=== PATIENT | female | born 1945 ===

== ENCOUNTER 2017-02-26 06:43 | Emergency (ER) | payer MEDICARE, OTHER ==
[2017-02-26 07:09] VITALS: TEMP 98.5
[2017-02-26] MEDS ORDERED: Sodium Chloride 0.9% 1,000 ML IV STA (07:16)
--- NOTE | 2017-02-26 07:18 | ED PDOC ---
HPI: Abdomen Time Seen by Provider: 02/26/17 07:08 Chief Complaint (Nursing): Abdominal Pain History Per: Patient Onset/Duration Of Symptoms: Days (1) Current Symptoms Are (Timing): Still Present Severity: Mild Pain Scale Rating Of: 2 Location Of Pain/Discomfort: Epigastric Quality Of Discomfort: Unable To Describe Associated Symptoms: Nausea, Vomiting, Diarrhea. denies: Fever Exacerbating Factors: None Alleviating Factors: None Additional Complaint(s): Epigastric abd pain assoc with vomiting and diarrhea since last night. No fever. Past Medical History Vital Signs: Last Vital Signs Temp 98.5 F 02/26/17 07:06 Pulse 95 H 02/26/17 07:06 Resp 16 02/26/17 07:06 BP 147/73 02/26/17 07:06 Pulse Ox 97 02/26/17 07:18 - Medical History PMH: Gastritis - Family History Family History: States: Unknown Family Hx - Home Medications Home Medications: Ambulatory Orders Medication Instructions Recorded Famotidine [Pepcid] 20 mg PO Q12 #20 tab 02/26/17 Loperamide [Loperamide HCl] 2 mg PO Q8 #10 cap 02/26/17 Ondansetron [Zofran] 4 mg PO Q8H #10 tab 02/26/17 - Allergies Allergies/Adverse Reactions: Allergies Allergy/AdvReac Type Severity Reaction Status Date / Time codeine Allergy RASH Verified 02/26/17 07:05 shellfish derived Allergy RASH Verified 02/26/17 07:05 tramadol Allergy RASH Verified 02/26/17 07:05 Review of Systems ROS Statement: Except As Marked, All Systems Reviewed And Found Negative Constitutional: Negative for: Fever Gastrointestinal: Positive for: Nausea, Vomiting, Abdominal Pain, Diarrhea Physical Exam - Reviewed Nursing Documentation Reviewed: Yes Vital Signs Reviewed: Yes - Physical Exam Appears: Positive for: Non-toxic, No Acute Distress Head Exam: Positive for: ATRAUMATIC, NORMAL INSPECTION, NORMOCEPHALIC Skin: Positive for: Normal Color, Warm, DRY Eye Exam: Positive for: EOMI, Normal appearance, PERRL ENT: Positive for: Normal ENT Inspection Neck: Positive for: Normal, Painless ROM Cardiovascular/Chest: Positive for: Regular Rate, Rhythm Respiratory: Positive for: CNT, Normal Breath Sounds Gastrointestinal/Abdominal: Positive for: Bowel Sounds, Soft, Tenderness ( Epigastric) Back: Positive for: Normal Inspection Extremity: Positive for: Normal ROM Neurologic/Psych: Positive for: Alert, Oriented - Laboratory Results Result Diagrams: 02/26/17 07:58 02/26/17 07:58 - ECG O2 Sat by Pulse Oximetry: 97 Disposition - Clinical Impression Clinical Impression: Gastroenteritis - Patient ED Disposition Is Patient to be Admitted: No Counseled Patient/Family Regarding: Studies Performed, Diagnosis, Need For Followup, Rx Given - Disposition Referrals: LTAC[facility] [Outside] Disposition: Routine/Home Disposition Time: 08:30 Condition: FAIR Prescriptions: Famotidine [Pepcid] 20 mg PO Q12 #20 tab Loperamide [Loperamide HCl] 2 mg PO Q8 #10 cap Ondansetron [Zofran] 4 mg PO Q8H #10 tab Instructions: Gastroenteritis (ED) Forms: [facility] (Sudanese) Print Language: URUGUAYAN
[2017-02-26 08:06] LABS: BASO % 0.2 % (0.0-2.0); EOS % 0.1 % (0.0-4.0); HEMOGLOBIN 14.1 g/dL (12.0-16.0); LYMPH # 0.3 K/uL (1.0-4.3); LYMPH % 3.9 % (20.0-40.0); MEAN CELL VOLUME 93.4 fl (81.0-99.0); MEAN CORPUSCULAR HEMOGLOBIN 31.2 pg (27.0-31.0); MEAN CORPUSCULAR HGB CONC 33.4 g/dL (33.0-37.0); MONO # 0.2 K/uL (0.0-0.8); NEUT # 7.6 K/uL (1.8-7.0); NEUT % 92.8 % (50.0-75.0); NRBC % 0.1 % (0.0-0.0); PLATELET COUNT 205 K/uL (130-400); RBC 4.53 Mil/uL (3.80-5.20); RED CELL DISTRIBUTION WIDTH 13.2 % (11.5-14.5); WHITE BLOOD COUNT 8.2 K/uL (4.8-10.8)
[2017-02-26 08:28] LABS: ALB/GLOB RATIO 1.4 (1.0-2.1); ALBUMIN 4.6 g/dL (3.5-5.0); CALCIUM 9.1 mg/dL (8.4-10.2); GFR AFRICAN-AMERICAN > 60; GFR NON-AFRICAN AMERICAN > 60
[2017-02-26 08:47] LABS: ALT/SGPT 39 U/L (9-52); AST/SGOT 35 U/L (14-36); BLOOD UREA NITROGEN 17 mg/dl (7-17)
[2017-02-26 09:22] VITALS: BP 128/69; PULSE 80; RESP 20; O2SAT 98
[2017-02-26 12:26] LABS: LYMPHOCYTE 3 % (20-50); MONOCYTE 2 % (0-10); NEUTROPHIL 94 % (42-75); PLATELET ESTIMATE NORMAL (NORMAL); REACTIVE LYMPHOCYTES 1 % (0-0); TOTAL CELLS COUNTED 100
== END 2017-02-26 09:20 | disposition home or self-care (01) ==
LOC: H.ER 06:43
DX: K52.9 Noninfective gastroenteritis and colitis, unspecified (principal)
CPT/HCPCS: 80053; 85025; 96374; 96375; 99283; J2405; J7040

== ENCOUNTER 2017-07-30 20:16 | Emergency (ER) | payer MEDICARE, OTHER ==
[2017-07-30] MEDS ORDERED: DiphenhydrAMINE 50 mg/ml Inj IVP STA (21:21)
--- NOTE | 2017-07-30 21:34 | ED PDOC ---
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 Further states that along with this she has felt febrile and at the same times feels like he eyes are very hot causing her to have blurry vision but currently she is experiencing those symptoms. Has been using Benadryl without relief of symptoms. Past Medical History Reviewed: Historical Data, Nursing Documentation Vital Signs: Last Vital Signs Temp 98.3 F 07/30/17 20:47 Pulse 71 07/30/17 20:47 Resp 18 07/30/17 20:47 BP 140/74 07/30/17 20:47 Pulse Ox 100 07/30/17 21:39 - Medical History PMH: Gastritis, HTN, Mitral Valve Prolapse - Surgical History Surgical History: Appendectomy - Family History Family History: States: Unknown Family Hx - Home Medications Home Medications: Ambulatory Orders Medication Instructions Recorded Famotidine [Pepcid] 20 mg PO Q12 #20 tab 02/26/17 Loperamide [Loperamide HCl] 2 mg PO Q8 #10 cap 02/26/17 Ondansetron [Zofran] 4 mg PO Q8H #10 tab 02/26/17 DiphenhydrAMINE [Benadryl] 1 - 2 cap PO Q6 PRN #30 cap 07/30/17 Methylprednisolone [Medrol Dose 4 mg PO DAILY #21 mg 07/30/17 Pack (21 tabs)] - Allergies Allergies/Adverse Reactions: Allergies Allergy/AdvReac Type Severity Reaction Status Date / Time codeine Allergy RASH Verified 02/26/17 07:05 shellfish derived Allergy RASH Verified 02/26/17 07:05 tramadol Allergy RASH Verified 02/26/17 07:05 Review of Systems ROS Statement: Except As Marked, All Systems Reviewed And Found Negative (As per HPI, otherwise negative) Constitutional: Positive for: Fever (has resvoled since ) Eyes: Positive for: Vision Change (blurry (had resolved since)) Skin: Positive for: Rash (to the forearms and legs bilaterally) Physical Exam - Reviewed Nursing Documentation Reviewed: Yes Vital Signs Reviewed: Yes - Physical Exam Appears: Positive for: Well, No Acute Distress Head Exam: Positive for: NORMAL INSPECTION Skin: Positive for: Rash (Bilateral posterior forearm and bilateral upper arm with blotchy erythematous patches with blanching as well as some on the thighs bilaterally. No breaking skin integrity. No central clearing. ) Neurologic/Psych: Positive for: Alert, Oriented (x3) - Laboratory Results Result Diagrams: 07/30/17 21:44 07/30/17 21:44 - ECG O2 Sat by Pulse Oximetry: 100 (RA) Pulse Ox Interpretation: Normal - Progress ED Course And Treament: On re-evaluation, pt. reports moderate improvement of redness and rash. Reports complete relief of burning sensation. Pt. AAOx3. Gait steady, unassisted. Medical Decision Making Medical Decision Making: Time: 2120 Initial impression: Rash Initial plan: VBG Shock Panel CMP CBC w. diff Benadryl 25 mg IVP Methylprednisolone 125 mg IVP Blood culture Reevaluation --Case discussed with Dr. Paul who recommends labs, Benadryl, and methylprednisolone. Scribe Attestation: Documented by Dolly Martinez, acting as a scribe for Michael Vu PA-C. Provider Scribe Attestation: All medical record entries made by the Scribe were at my direction and personally dictated by me. I have reviewed the chart and agree that the record accurately reflects my personal performance of the history, physical exam, medical decision making, and the department course for this patient. I have also personally directed, reviewed, and agree with the discharge instructions and disposition. Disposition - Clinical Impression Clinical Impression: Urticaria - Patient ED Disposition Is Patient to be Admitted: No - Disposition Disposition: Routine/Home Disposition Time: 23:26 Condition: IMPROVED Additional Instructions: Follow up with PMD for further evaluation. Return to ED immediately if symptoms worsen. Prescriptions: DiphenhydrAMINE [Benadryl] 1 - 2 cap PO Q6 PRN #30 cap PRN Reason: itching or rash Methylprednisolone [Medrol Dose Pack (21 tabs)] 4 mg PO DAILY #21 mg Instructions: Lopez (DC) Forms: [employer] ([employer]) Print Language: KITTITIAN
[2017-07-30 21:48] LABS: BASO % 0.6 % (0.0-2.0); EOS # 0.1 K/uL (0.0-0.7); EOS % 3.3 % (0.0-4.0); LYMPH # 0.8 K/uL (1.0-4.3); LYMPH % 26.1 % (20.0-40.0); MEAN CELL VOLUME 90.4 fl (81.0-99.0); MEAN CORPUSCULAR HEMOGLOBIN 30.5 pg (27.0-31.0); MEAN CORPUSCULAR HGB CONC 33.7 g/dL (33.0-37.0); MEAN PLATELET VOLUME 8.1 fl (7.2-11.7); MONO # 0.5 K/uL (0.0-0.8); MONO % 15.6 % (0.0-10.0); NEUT # 1.6 K/uL (1.8-7.0); NEUT % 54.4 % (50.0-75.0); NRBC % 0.1 % (0.0-0.0); RBC 4.25 Mil/uL (3.80-5.20); RED CELL DISTRIBUTION WIDTH 13.5 % (11.5-14.5); WHITE BLOOD COUNT 2.9 K/uL (4.8-10.8)
[2017-07-30] MEDS ORDERED: DiphenhydrAMINE 50 mg/ml Inj ONE (21:48)
[2017-07-30 21:58] LABS: ALB/GLOB RATIO 1.1 (1.0-2.1); ALBUMIN 3.8 g/dL (3.5-5.0); ALT/SGPT 33 U/L (9-52); AST/SGOT 29 U/L (14-36); BLOOD UREA NITROGEN 20 mg/dl (7-17); CALCIUM 8.9 mg/dL (8.4-10.2); GFR AFRICAN-AMERICAN > 60; GFR NON-AFRICAN AMERICAN > 60
[2017-07-30 22:04] LABS: VENOUS BLOOD GAS BASE EXCESS 5.6 mmol/L (0.0-2.0); VENOUS BLOOD GAS PCO2 51 mmHg (40-60); VENOUS BLOOD GAS PO2 41 mm/Hg (30-55)
[2017-07-31 00:18] VITALS: BP 134/78; PULSE 80; RESP 16; TEMP 98; O2SAT 98
== END 2017-07-31 00:17 | disposition home or self-care (01) ==
LOC: H.ER 20:16
DX: L50.9 Urticaria, unspecified (principal); I10 Essential (primary) hypertension; I34.1 Nonrheumatic mitral (valve) prolapse
CPT/HCPCS: 80053; 82803; 85025; 87040; 96374; 96375; 99283; J1200; J2930

== ENCOUNTER 2017-08-20 18:18 | Emergency (ER) | payer MEDICARE, OTHER ==
[2017-08-20 18:57] VITALS: O2SAT 99
[2017-08-20] MEDS ORDERED: DiphenhydrAMINE 50 mg/ml Inj IVP STA (19:51)
--- NOTE | 2017-08-20 21:03 | ED PDOC ---
HPI: Skin/Bite Injury Time Seen by Provider: 08/20/17 18:59 Chief Complaint (Nursing): Abnormal Skin Integrity Chief Complaint (Provider): Rash History Per: Patient, [employer] ([place] #[id number]) History/Exam Limitations: no limitations Onset/Duration Of Symptoms: Other (x3 weeks) Current Symptoms Are (Timing): Still Present Additional Complaint(s): 72 year old female presents to the emergency department complaining of a generalized bodily rash. Patient reports that for the past weeks she has had an intermittent pyritic burning type rash throughout her entire body. She states that she was seen in the emergency department by this provider on 07/31/17 and was prescribed benadryl and steroids which provided good relief but states that over the past week the rash returned. 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 Denies fever, shortness of breath, throat swelling, hx of previous allergic reaction. Past Medical History Reviewed: Historical Data, Nursing Documentation, Vital Signs Vital Signs: Last Vital Signs Temp 98.0 F 08/20/17 21:58 Pulse 80 08/20/17 21:58 Resp 16 08/20/17 21:58 BP 154/70 H 08/20/17 21:58 Pulse Ox 99 08/20/17 23:37 - Medical History PMH: Gastritis, HTN, Mitral Valve Prolapse - Surgical History Surgical History: Appendectomy - Family History Family History: States: Unknown Family Hx - Home Medications Home Medications: Ambulatory Orders Medication Instructions Recorded Famotidine [Pepcid] 20 mg PO Q12 #20 tab 02/26/17 Loperamide [Loperamide HCl] 2 mg PO Q8 #10 cap 02/26/17 Ondansetron [Zofran] 4 mg PO Q8H #10 tab 02/26/17 DiphenhydrAMINE [Benadryl] 1 - 2 cap PO Q6 PRN #30 cap 07/30/17 Methylprednisolone [Medrol Dose 4 mg PO DAILY #21 mg 07/30/17 Pack (21 tabs)] DiphenhydrAMINE [Benadryl] 1 - 2 cap PO Q6 PRN #30 cap 08/20/17 Methylprednisolone [Medrol Dose 4 mg PO DAILY #21 mg 08/20/17 Pack (21 tabs)] - Allergies Allergies/Adverse Reactions: Allergies Allergy/AdvReac Type Severity Reaction Status Date / Time codeine Allergy RASH Verified 08/20/17 18:53 shellfish derived Allergy RASH Verified 08/20/17 18:53 tramadol Allergy RASH Verified 08/20/17 18:53 Review of Systems ROS Statement: Except As Marked, All Systems Reviewed And Found Negative Constitutional: Negative for: Fever ENT: Negative for: Throat Pain, Throat Swelling Respiratory: Negative for: Shortness of Breath Skin: Positive for: Rash (generalized bodily rash) Physical Exam - Reviewed Nursing Documentation Reviewed: Yes Vital Signs Reviewed: Yes - Physical Exam Appears: Positive for: Non-toxic, No Acute Distress Skin: Positive for: Normal Color, Warm, Dry, Rash (scattered urticarial rash with blanching throughout entire body greatest on forear and left knee;No vesicles or pustules. ) Eye Exam: Positive for: Normal appearance. Negative for: Periorbital swelling, Periorbital tenderness, Conjunctival injection (b/l) ENT: Positive for: Normal ENT Inspection Cardiovascular/Chest: Positive for: Regular Rate, Rhythm. Negative for: Tachycardia Respiratory: Positive for: Normal Breath Sounds. Negative for: Rales, Rhonchi, Wheezing, Respiratory Distress Neurologic/Psych: Positive for: Alert, Oriented (x3). Negative for: Aphasia, Facial Droop - ECG O2 Sat by Pulse Oximetry: 99 (RA) Pulse Ox Interpretation: Normal - Progress ED Course And Treament: On re-evaluation, pt reports good relief of rash and pruritus. Pt. alert and awake. Gait stead, unassisted. Medical Decision Making Medical Decision Makin Initial Impression 72 year old female presenting with bodily rash Initial Plan: * Benadryl 50 mg PO * Pepcid 40 mg IVP PO * SOLU-medrol 125 mg IVP * Reevaluation Documented by Jessi Langford acting as a scribe for Michael Vu PA-C. All medical record entries made by the Scribe were at my direction and personally dictated by me. I have reviewed the chart and agree that the record accurately reflects my personal performance of the history, physical exam, medical decision making, and the department course for this patient. I have also personally directed, reviewed, and agree with the discharge instructions and disposition. Disposition - Clinical Impression Clinical Impression: Urticaria - Patient ED Disposition Is Patient to be Admitted: No - Disposition Referrals: [facility] [place] [Outside] [facility] [Outside] Disposition: Routine/Home Disposition Time: 21:45 Condition: IMPROVED Additional Instructions: Follow up with PMD for further evaluation. Return to ED immediately if symptoms worsen. Prescriptions: DiphenhydrAMINE [Benadryl] 1 - 2 cap PO Q6 PRN #30 cap PRN Reason: Itching / Pruritus Methylprednisolone [Medrol Dose Pack (21 tabs)] 4 mg PO DAILY #21 mg Instructions: Lopez (RAS) Forms: [employer] (Namibian) Print Language: BELGIAN
[2017-08-20 21:59] VITALS: BP 154/70; PULSE 80; RESP 16; TEMP 98
== END 2017-08-20 22:10 | disposition home or self-care (01) ==
LOC: H.ER 18:18
DX: L50.9 Urticaria, unspecified (principal); I34.1 Nonrheumatic mitral (valve) prolapse; I10 Essential (primary) hypertension
CPT/HCPCS: 96374; 96375; 99282; J1200; J2930